=== PATIENT | male | born 1985 | race Asian ===

== ENCOUNTER 2017-12-20 11:57 | Day surgery (SDC) | payer OTHER ==
[2017-12-20] VITALS (8 sets, daily range): BP systolic 132–147; BP diastolic 80–104; PULSE 88–112; TEMP 98.8–98.9
[~2017-12-20] VITALS: Ht 182.9 cm; Wt 107.5 kg
[2017-12-20] MEDS ORDERED: FLONASEALLERGY NS (12:12)
[2017-12-20] MEDS ORDERED: COLESTID 1GM1 G PO (12:13)
[2017-12-20] MEDS ORDERED: PROTONIX 40MG T40 MG PO (14:23)
== END 2017-12-20 16:12 | disposition home or self-care (01) ==
LOC: SDCO 11:57 → EDSEX 12:15 → SDCO 12:15
DX: K64.0 First degree hemorrhoids (principal); K62.89 Other specified diseases of anus and rectum; K21.0 Gastro-esophageal reflux disease with esophagitis; K44.9 Diaphragmatic hernia without obstruction or gangrene; K29.30 Chronic superficial gastritis without bleeding
CPT/HCPCS: OP; J2250; J3010; J7030

== ENCOUNTER → 2020-02-14 | Outpatient (CLI) | payer OTHER ==
[~2020-02-14] MED LIST: ASPIRIN E.C. 8181 MG PO; BYSTOLIC2.5 MG PO; COLESTID 1GM1 G PO; EPA FISH OIL1 SGL PO; FLONASEALLERGY NS; LIPITOR20 MG PO; PROTONIX 40MG T40 MG PO
== END ==
LOC: COL.LAB 08:00
DX: Z20.828 Contact with and (suspected) exposure to other viral communicable diseases (principal)

== ENCOUNTER 2020-02-18 11:58 | Day surgery (SDC) | payer OTHER ==
[~2020-02-18] VITALS: Ht 182.9 cm; Wt 113.0 kg
[2020-02-18] VITALS (9 sets, daily range): BP systolic 100–127; BP diastolic 66–74; PULSE 57–73; TEMP 98.9
[~2020-02-18 11:58] MED LIST changes: -ASPIRIN E.C. 8181 MG PO; -BYSTOLIC2.5 MG PO; -EPA FISH OIL1 SGL PO; -LIPITOR20 MG PO
[2020-02-18] MEDS ORDERED: LIPITOR20 MG PO (12:22)
[2020-02-18] MEDS ORDERED: BYSTOLIC2.5 MG PO (12:23)
[2020-02-18] MEDS ORDERED: EPA FISH OIL1 SGL PO (12:24)
[2020-02-18] MEDS ORDERED: ASPIRIN E.C. 8181 MG PO (12:24)
[2020-02-18 13:07] LABS: HEMATOCRIT 45.7 % (42.0-52.0); HEMOGLOBIN 15.8 g/dl (13.5-18.0); MEAN CELL VOLUME 90 fl (80.0-100.0); MEAN CORPUSCULAR HEMOGLOBIN 31 pg (27.0-31.0); MEAN CORPUSCULAR HGB CONC 35 g/dl (33.0-37.0); MEAN PLATELET VOLUME 9.2 fl (7.4-10.4); PLATELET COUNT 299 K/mm3 (130-400); REDCELL DISTRIBUTION WIDTH-CV 12.3 % (11.5-14.5)
[2020-02-18 13:13] LABS: INR 1.1 (0.8-3.0); PROTHROMBIN TIME 12.2 SECONDS (9.7-12.8)
[2020-02-18 13:15] LABS: PARTIAL THROMBOPLASTIN TIME 36.7 SECONDS (26.0-37.0)
[2020-02-18 13:22] LABS: CREATININE, serum 0.9 (0.66-1.25); POTASSIUM 4.2 mmol/L (3.4-5.0)
--- NOTE | 2020-02-18 14:41 | NUR ---
SEE MERGE DOCUMENTATION FOR MEDICATION ADMINISTRATION TIMES AND INTRA/POST PROCEDURE SEDATION ASSESSMENTS. PLAN FOR RIGHT RADIAL ACCESS; RIGHT HAND BARBEAU TEST POSITIVE.
--- NOTE | 2020-02-18 17:15 | NUR ---
5ml of air released from TR Band at 1710, no bleeding. Discharge instructions reviewed with pt. Pt voices understanding. Pt tolerated intake with no N/V. Remaining air was removed from TR Band. No bleeding and 2x2 gauze and coban was applied to the right radial site. Pt ambulated in and around the unit with no complications. IV was discontinued from the left arm, no phlebitis or infiltration. Pt was discharged via w/c to the care of friend in private vehicle with discharge instructions in hand.
== END 2020-02-18 17:30 | disposition home or self-care (01) ==
LOC: COL.CAR 11:58
PROVIDERS: Internal Medicine Cardiovascular Disease
DX: I20.9 Angina pectoris, unspecified (principal); R94.39 Abnormal result of other cardiovascular function study; I10 Essential (primary) hypertension; E78.5 Hyperlipidemia, unspecified; E88.81 Metabolic syndrome and other insulin resistance; Z79.82 Long term (current) use of aspirin; Z82.49 Family history of ischemic heart disease and other diseases of the circulatory system; Z79.899 Other long term (current) drug therapy
CPT/HCPCS: J1644; J2250; J3010; Q9967